=== PATIENT | female | born 1955 | race Caucasian/White ===

== ENCOUNTER 2016-08-26 11:23 | Emergency (ER) | payer OTHER ==
[2016-08-26 11:35] VITALS: BP 124/62; PULSE 66; RESP 18; TEMP 98; O2SAT 97
--- NOTE | 2016-08-26 13:20 | UCPHY ---
H & P Time Seen by Provider: 08/26/16 11:36 Patient Type: New HPI/ROS: 61-year-old female with no significant past medical history presents complaining of cough, fevers chills myalgias for approximately 4 days duration. She states she rarely gets sick and this is highly unusual for her. She has called in sick 2 days this week to work which is also quite unusual for her. She runs daily, she is not a smoker. Review of systems As per HPI General positive fever positive chills no weakness, positive fatigue HEENT no eye pain no eye discharge. 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 Denies smoking Runs 4-5 times per week Smoking Status: Never smoked Physical Exam: 61-year-old female alert and oriented, nontoxic appearance afebrile HEENT atraumatic normocephalic, extraocular muscles intact, anicteric Oropharynx negative for erythema negative exudate, tolerating her own secretions Neck supple no meningismus Lungs clear to auscultation bilaterally Heart regular rate and rhythm without murmur rub or gallop Abdomen nondistended normoactive bowel sounds soft nontender Back no CVA tenderness, no step-offs, no spinal tenderness Extremities no cyanosis clubbing or edema Neuro alert and oriented, no focal deficits Constitutional: Initial Vital Signs Temperature (C) 36.6 C 08/26/16 11:31 Heart Rate 66 08/26/16 11:31 Respiratory Rate 18 08/26/16 11:31 Blood Pressure 124/62 H 08/26/16 11:31 O2 Sat (%) 97 08/26/16 11:31 O2 Delivery Mode Room Air Allergies/Adverse Reactions: CATS Allergy (Mild, Uncoded 05/15/14 15:28) Other-Enter Comments Home Medications: Medication Instructions Recorded Estrace 08/26/16 Synthroid 08/26/16 Medical Decision Making ED Course/Re-evaluation: Patient seen and evaluated for cough myalgias fevers chills of 4 days duration Presentation consistent with a flu-like illness Differential diagnosis considered URI, bronchitis, pneumonia, viral syndrome, influenza Influenza swab negative Chest x-ray negative Impression Viral syndrome, flu-like illness Plan Symptomatic/supportive care Rest, drink plenty of fluids acetaminophen or ibuprofen as needed for pain and fever Return if worsening Follow up with primary care physician Departure - Departure Disposition: Home, Routine, Self-Care Clinical Impression: Flu-like symptoms, Bronchitis Condition: Good Instructions: Acute Bronchitis (ED), Viral Syndrome (ED) Referrals: Haydee Lara MD [Primary Care Provider] - As per Instructions Stand Alone Forms: Work Excuse - PQRS PQRS Measurement: na
== END 2016-08-26 13:49 | disposition home or self-care (01) ==
LOC: CED 11:23
DX: B34.9 Viral infection, unspecified (principal)
CPT/HCPCS: 71020-PO; 87400-PO; 99203-PO; G0463-PO

== ENCOUNTER 2017-02-25 17:03 | Observation (INO) | payer OTHER ==
--- NOTE | 2017-02-25 18:09 | EDPHY ---
HPI/HX/ROS/PE/MDM Narrative: CHIEF COMPLAINT: Diplopia HPI: The patient is a 62 y/o female arriving with her friend complaining of double vision and stumbling onset early this morning. She woke up in the middle of the night to use the bathroom and noticed she had double vision and was stumbling and dizzy. She went back to sleep and when she woke up later she found her symptoms had not improved. She sees horizontal double vision in her right eye and "wavy" vision in her left eye when covering the opposite eye. Lying down improves her symptoms slightly. Looking to the left aggravates symptoms. She denies no eye pain or recent trauma, unilateral weakness or paresthesias. She also mentions she had a flu vaccination yesterday. She also notes recent poor exercise tolerance. REVIEW OF SYSTEMS: Aside from elements discussed in the HPI, a comprehensive 10-point review of systems was reviewed and is negative. 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 ENT:Disconjugate gaze when looking left. ENT inspection normal. Neck: Normal inspection. Full range of motion. Respiratory:No respiratory distress. Breath sounds normal bilaterally. Cardiovascular: Regular rate and rhythm. Strong peripheral pulses. Normal cap refill. Abdomen:The abdomen is nontender to palpation. There are no peritoneal signs. Back: Normal to inspection. No tenderness to palpation. Skin: Normal color. No rash. Warm and dry. Extremities: Normal appearance. Full range of motion. Neuro: Oriented x3. Normal motor function. Normal sensory function. No pronator drift. Normal [id number]. Normal [id number]-[id number]. Sightly abnormal dysdiadochokinesis of left hand. ED Course: Brain MRI ordered. Patient placed on loan adviser. 1mg IV Ativan administered for anxiety in the MRI. The 12 lead EKG was interpreted by myself. Sinus mechanism rate 66. Anterior Q waves present. See hard copy and/or "tracemaster" electronic copy for interpretation. Brain MRI: incidental mass near jugular fossa, nonspecific white matter changes. 1951: Consulted with Dr. Abarca, [facility]. He will assess patient via telemedicine bot. 2019: Consulted with Dr. Abarca. 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 She will require admission for further evaluation. 2053: Spoke with hospitalist service. Dr. Solis accepts admission. Head CTA negative. MDM: This patient presents with acute diplopia and ataxia. 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 I have ordered numerous labs and CTA per Neurology. We will defer LP to inpatient team. I see no evidence of CVA, SAH, hyponatremia, ophthalmologic emergency. - Data Points Imaging Results: Imaging Impressions Brain MRI 02/25/17 18:13 Impression: 1. Moderate periventricular and deep hemispheric white matter change which is nonspecific. This can be seen with small vessel ischemic disease, postinfectious /postinflammatory etiology, or atypical demyelinating disease. No evidence for acute infarct or abnormal enhancement. 2. 3 x 2.5 cm vividly enhancing mass seen inferior from the region of the jugular fossa as above. 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 Recommend ENT consultation. Results discussed with Dr. Jamari Saeed at 1940 hours on 25 February 2017.6 Imaging: Discussed imaging studies w/ call manager Radiologist, I viewed and interpreted images myself Laboratory Results: Laboratory Results 02/25/17 17:56 02/25/17 17:56 02/25/17 02/25/17 02/25/17 17:56 17:56 17:56 WBC 5.12 10^3/uL 10^3/uL (3.80-9.50) RBC 5.61 10^6/uL H 10^6/uL (4.18-5.33) Hgb 16.4 g/dL H g/dL (12.6-16.3) Hct 48.2 % H % (38.0-47.0) MCV 85.9 fL fL (81.5-99.8) MCH 29.2 pg pg (27.9-34.1) MCHC 34.0 g/dL g/dL (32.4-36.7) RDW 14.9 % % (11.5-15.2) Plt Count 173 10^3/uL 10^3/uL (150-400) MPV 10.6 fL fL (8.7-11.7) Neut % (Auto) 61.5 % % (39.3-74.2) Lymph % (Auto) 23.8 % % (15.0-45.0) [place] % (Auto) 10.2 % % (4.5-13.0) Eos % (Auto) 2.9 % % (0.6-7.6) Baso % (Auto) 1.4 % % (0.3-1.7) Nucleat RBC Rel Count 0.0 % % (0.0-0.2) Absolute Neuts (auto) 3.15 10^3/uL 10^3/uL (1.70-6.50) Absolute Lymphs (auto) 1.22 10^3/uL 10^3/uL (1.00-3.00) Absolute Monos (auto) 0.52 10^3/uL 10^3/uL (0.30-0.80) Absolute Eos (auto) 0.15 10^3/uL 10^3/uL (0.03-0.40) Absolute Basos (auto) 0.07 10^3/uL 10^3/uL (0.02-0.10) Absolute Nucleated RBC 0.00 10^3/uL 10^3/uL (0-0.01) Immature Gran % 0.2 % % (0.0-1.1) Immature Gran # 0.01 10^3/uL 10^3/uL (0.00-0.10) PT 13.6 SEC SEC (12.0-15.0) INR 1.05 (0.83-1.16) APTT 26.1 SEC SEC (23.0-38.0) Sodium 135 mEq/L mEq/L (134-144) Potassium 3.9 mEq/L mEq/L (3.5-5.2) Chloride 104 mEq/L mEq/L (97-110) Carbon Dioxide 21 mEq/l L mEq/l (22-31) Anion Gap 10 mEq/L mEq/L (8-16) BUN 12 mg/dL mg/dL (7-23) Creatinine 1.0 mg/dL mg/dL (0.6-1.0) Estimated GFR 56 Glucose 75 mg/dL mg/dL (70-100) Calcium 9.5 mg/dL mg/dL (8.5-10.4) Troponin I < 0.012 ng/mL ng/mL (0.000-0.034) Medications Given: Discontinued Medications Lorazepam (Ativan Injection) 1 mg IVP EDNOW ONE Stop: 02/25/17 18:24 Last Admin: 02/25/17 18:31 Dose: 1 mg General Time Seen by Provider: 02/25/17 17:52 Initial Vital Signs: Initial Vital Signs Temperature (C) 36.8 C 02/25/17 17:22 Heart Rate 79 02/25/17 17:22 Respiratory Rate 17 02/25/17 17:22 Blood Pressure 129/93 H 02/25/17 17:22 O2 Sat (%) 98 02/25/17 17:22 O2 Delivery Mode Room Air Allergies/Adverse Reactions: CATS Allergy (Mild, Uncoded 05/15/14 15:28) Other-Enter Comments Home Medications: Medication Instructions Recorded Cholecalciferol Vit D3 [Vitamin D3 2,000 units PO HS 02/25/17 (*)] Estrogen,Donya/Me-Testosterone 1 tab PO HS 02/25/17 [Estratest H.s. 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 I personally performed the history, physical exam, and medical decision making; and confirm the accuracy of the information in the transcribed note.
[2017-02-25 18:22] LABS: % IMMATURE GRANULYOCYTES 0.2 % (0.0-1.1); ABSOLUTE IMMATURE GRANULOCYTES 0.01 10^3/uL (0.00-0.10); ADD DIFF? NO; ADD MORPH? NO; ADD SCAN? NO; ATYPICAL LYMPHOCYTE FLAG 0 (0-99); FRAGMENT RBC FLAG 0 (0-99); HEMATOCRIT 48.2 % (38.0-47.0); HEMOGLOBIN 16.4 g/dL (12.6-16.3); LEFT SHIFT FLG 0 (0-99); LIPEMIA HEMOLYSIS FLAG 90 (0-99); MEAN CELL HEMOGLOBIN 29.2 pg (27.9-34.1); MEAN CELL VOLUME 85.9 fL (81.5-99.8); MEAN PLATELET VOLUME 10.6 fL (8.7-11.7); PLATELET CLUMPS FLAG 0 (0-99); PLATELET COUNT 173 10^3/uL (150-400); RED BLOOD CELL COUNT 5.61 10^6/uL (4.18-5.33); RED CELL DISTRIBUTION WIDTH 14.9 % (11.5-15.2)
[2017-02-25] MEDS ORDERED: LORazepam 2 MG/ML INJ IVP ONE (18:23)
--- NOTE | 2017-02-25 18:26 | CPEKG ---
Heart Rate: 66 RR Interval: 909 P-R Interval: 168 QRSD Interval: 68 QT Interval: 396 QTC Interval: 415 P [place]: 47 QRS [place]: -40 T Wave [place]: 15 EKG Severity - ABNORMAL ECG - EKG Impression: SINUS RHYTHM EKG Impression: LEFT AXIS DEVIATION EKG Impression: ANTERIOR INFARCT, OLD Electronically Signed By: Ravi Cali 25-Feb-2017 20:35:31
[2017-02-25 18:29] LABS: ANION GAP 10 mEq/L (8-16); CALCIUM 9.5 mg/dL (8.5-10.4); CARBON DIOXIDE 21 mEq/l (22-31); CHLORIDE 104 mEq/L (97-110); GLOMERULAR FILTRATION RATE 56; GLUCOSE 75 mg/dL (70-100); POTASSIUM 3.9 mEq/L (3.5-5.2); SODIUM 135 mEq/L (134-144)
[2017-02-25 18:31] LABS: INR 1.05 (0.83-1.16); PROTIME(PATIENT) 13.6 SEC (12.0-15.0)
[2017-02-25 18:32] LABS: APTT 26.1 SEC (23.0-38.0)
[2017-02-25 18:39] LABS: TROPONIN I < 0.012 ng/mL (0.000-0.034)
[2017-02-25] MEDS ORDERED: GADOBUTROL 10 ML VIAL IVP ONE (18:56)
[2017-02-25] MEDS ORDERED: IOPAMIDOL (ISOVUE 370) 100 ML BTL IV ONE (20:36)
[2017-02-25 20:48] LABS: HEMATOCRIT 49.5 % (38.0-47.0)
[2017-02-25 21:10] LABS: C-REACTIVE PROTEIN 6.6 mg/L (<10.0)
[2017-02-25] MEDS ORDERED: ONDANSETRON 4 MG/2 ML VIAL IVP PRN (23:21)
[2017-02-25] MEDS ORDERED: ONDANSETRON DISINTEGRATING 4 MG TAB PO PRN (23:21)
[2017-02-25] MEDS ORDERED: ACETAMINOPHEN 325 MG TAB PO PRN (23:21)
--- NOTE | 2017-02-26 00:36 | PDGENHP ---
History and Physical - Chief Complaint Dizziness - History of Present Illness 62 yo F w/ hypothyroidism presents with one day of dizziness. Patient received her flu shot on the day prior to admission. She had a normal day after that and went to sleep. She got up in the middle of the night to go to the bathroom and noticed that she was unsteady on her feet. She did not make of much of this and went back to sleep. Then, she noticed that her symptoms persisted upon waking so she came to the ED. She describes dizziness, unsteady gait, falling to her left side, and double vision. She denies headache, weakness, or numbness. She complains of double vision specifically if she keeps her R eye open. History Information - Allergies/Home Medication List Allergies/Adverse Reactions: CATS Allergy (Mild, Uncoded 05/15/14 15:28) Other-Enter Comments Home Medications: Cholecalciferol Vit D3 [Vitamin D3 (*)] 2,000 units PO HS 02/25/17 [Last Taken 02/24/17] Estrogen,Donya/Me-Testosterone [Estratest H.s. Tablet] 0.5 tab PO DAILY [Last Taken Unknown] Levothyroxine [Synthroid 25 mcg (*)] 25 mcg PO DAILY06 02/25/17 [Last Taken ] Norethindrone Acetate 2.5 tab PO HS 02/25/17 [Last Taken 02/24/17] I have personally reviewed and updated: family history, medical history - Past Medical History Additional medical history: Hypothyroid - Surgical History Reports: no pertinent surgical hx - Family History Positive for: cancer, CAD - Social History Smoking Status: Never smoked Alcohol Use: Occasionally Drug Use: None Review of Systems Review of Systems: ROS: 10pt was reviewed & negative except for what was stated in HPI & below Physical Exam Physical Exam: Temp Pulse Resp BP Pulse Ox 37.0 C 74 18 127/86 H 97 02/25/17 23:53 02/25/17 23:53 02/25/17 23:53 02/25/17 23:53 02/25/17 23:53 Constitutional: no apparent distress, appears nourished Eyes: PERRL, other (Cannot adduct R eye past mid-line, no ptosis, able to weakly adduct on convergence) Ears, Nose, Mouth, Throat: moist mucous membranes, no oral mucosal ulcers Cardiovascular: regular rate and rhythym, no murmur, rub, or gallop Respiratory: no respiratory distress, clear to auscultation Gastrointestinal: normoactive bowel sounds, soft, non-tender abdomen Skin: warm, no rashes or abrasions Musculoskeletal: full muscle strength, no muscle tenderness Neurologic: AAOx3, sensation intact bilaterally, other (Neurologic exam normal aside from abnormality in ocular movement), No weakness, No numbness, No pronator drift, No facial droop Psychiatric: interacting appropriately, not anxious Lab Data & Imaging Review 02/25/17 Unknown 02/25/17 17:56 WBC 5.12 10^3/uL (3.80-9.50) 02/25/17 17:56 RBC 5.61 10^6/uL (4.18-5.33) H 02/25/17 17:56 Hgb 16.4 g/dL (12.6-16.3) H 02/25/17 17:56 Hct 49.5 % (38.0-47.0) H 02/25/17 Unknown MCV 85.9 fL (81.5-99.8) 02/25/17 17:56 MCH 29.2 pg (27.9-34.1) 02/25/17 17:56 MCHC 34.0 g/dL (32.4-36.7) 02/25/17 17:56 RDW 14.9 % (11.5-15.2) 02/25/17 17:56 Plt Count 173 10^3/uL (150-400) 02/25/17 17:56 MPV 10.6 fL (8.7-11.7) 02/25/17 17:56 Neut % (Auto) 61.5 % (39.3-74.2) 02/25/17 17:56 Lymph % (Auto) 23.8 % (15.0-45.0) 02/25/17 17:56 [place] % (Auto) 10.2 % (4.5-13.0) 02/25/17 17:56 Eos % (Auto) 2.9 % (0.6-7.6) 02/25/17 17:56 Baso % (Auto) 1.4 % (0.3-1.7) 02/25/17 17:56 Nucleat RBC Rel Count 0.0 % (0.0-0.2) 02/25/17 17:56 Absolute Neuts (auto) 3.15 10^3/uL (1.70-6.50) 02/25/17 17:56 Absolute Lymphs (auto) 1.22 10^3/uL (1.00-3.00) 02/25/17 17:56 Absolute Monos (auto) 0.52 10^3/uL (0.30-0.80) 02/25/17 17:56 Absolute Eos (auto) 0.15 10^3/uL (0.03-0.40) 02/25/17 17:56 Absolute Basos (auto) 0.07 10^3/uL (0.02-0.10) 02/25/17 17:56 Absolute Nucleated RBC 0.00 10^3/uL (0-0.01) 02/25/17 17:56 Immature Gran % 0.2 % (0.0-1.1) 02/25/17 17:56 Immature Gran # 0.01 10^3/uL (0.00-0.10) 02/25/17 17:56 ESR 5 MM/HR (0-30) 02/25/17 Unknown PT 13.6 SEC (12.0-15.0) 02/25/17 17:56 INR 1.05 (0.83-1.16) 02/25/17 17:56 APTT 26.1 SEC (23.0-38.0) 02/25/17 17:56 Sodium 135 mEq/L (134-144) 02/25/17 17:56 Potassium 3.9 mEq/L (3.5-5.2) 02/25/17 17:56 Chloride 104 mEq/L (97-110) 02/25/17 17:56 Carbon Dioxide 21 mEq/l (22-31) L 02/25/17 17:56 Anion Gap 10 mEq/L (8-16) 02/25/17 17:56 BUN 12 mg/dL (7-23) 02/25/17 17:56 Creatinine 1.0 mg/dL (0.6-1.0) 02/25/17 17:56 Estimated GFR 56 02/25/17 17:56 Glucose 75 mg/dL (70-100) 02/25/17 17:56 Calcium 9.5 mg/dL (8.5-10.4) 02/25/17 17:56 Troponin I < 0.012 ng/mL (0.000-0.034) 02/25/17 17:56 C-Reactive Protein 6.6 mg/L (<10.0) 02/25/17 Unknown TSH 1.880 uIU/mL (0.465-4.680) 02/25/17 Unknown Imaging Review: Multiple periventricular and deep hemispheric white matter lesions seen in MRI on T2 and FLAIR images. 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 Visualized and Interpreted EKG results: Yes EKG Interpretation: Positive for: normal sinsus rhythm Assessment & Plan Assessment: 62 yo F presents with dizziness, unsteady gait, and inability adduct R eye past midline one day after receiving a flu shot. Plan: 1. Ophthalmoplegia - Unable to adduct R eye past midline; she is able to weakly adduct it on convergence. The remainder of her neurologic exam is WNL. This seems consistent with internuclear ophthalmoplegia noting lack of ptosis and pupillary abnormalities. In conjunction with periventricular white matter lesions on MRI, picture is concerning for new onset MS. During teleconsultation in the ED with Dr. 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 After my evaluation and review of imaging, I discussed findings with Dr. Taveras of [facility], who also felt this to be consistent with MS. He recommended holding off on IVIG and giving Solumedrol 1g IV until our neurologist could evaluate her in the morning. It was his opinion that if our neurologists decided to give IVIG in the morning, it would not be affected by giving steroids now. - Solumedrol 1g IV x1 - Neurology consult placed 2. 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 - Likely amenable to outpatient ENT consultation 3. Hypothyroidism - On LTX as outpatient Diet - Regular Code - Full Ppx - SCDs Dispo - Admit to inpatient for solumedrol x3 days vs IVIG; pending neurology consultation
[2017-02-26] MEDS ORDERED: methylPREDNISolone SOD SUCC 1 GM in D5W 100 ML IV ONE ×2 (01:05→16:55)
[2017-02-26 07:47] LABS: % IMMATURE GRANULYOCYTES 0.2 % (0.0-1.1); ABSOLUTE IMMATURE GRANULOCYTES 0.01 10^3/uL (0.00-0.10); ADD DIFF? NO; ADD MORPH? NO; ADD SCAN? NO; ATYPICAL LYMPHOCYTE FLAG 0 (0-99); FRAGMENT RBC FLAG 0 (0-99); HEMATOCRIT 47.6 % (38.0-47.0); HEMOGLOBIN 16.4 g/dL (12.6-16.3); LEFT SHIFT FLG 0 (0-99); LIPEMIA HEMOLYSIS FLAG 90 (0-99); MEAN CELL HEMOGLOBIN 29.2 pg (27.9-34.1); MEAN CELL HEMOGLOBIN CONCENTR. 34.5 g/dL (32.4-36.7); MEAN CELL VOLUME 84.8 fL (81.5-99.8); MEAN PLATELET VOLUME 10.3 fL (8.7-11.7); PLATELET CLUMPS FLAG 10 (0-99); PLATELET COUNT 184 10^3/uL (150-400); RED BLOOD CELL COUNT 5.61 10^6/uL (4.18-5.33); RED CELL DISTRIBUTION WIDTH 14.7 % (11.5-15.2)
[2017-02-26 08:07] LABS: ANION GAP 13 mEq/L (8-16); CARBON DIOXIDE 18 mEq/l (22-31); CHLORIDE 105 mEq/L (97-110); GLOMERULAR FILTRATION RATE 56; GLUCOSE 96 mg/dL (70-100); POTASSIUM 4.2 mEq/L (3.5-5.2); SODIUM 136 mEq/L (134-144)
[2017-02-26] MEDS ORDERED: TESTOSTERONE PO SCH ×2 (10:00→21:00)
[2017-02-26] MEDS ORDERED: LEVOTHYROXINE 25 MCG TAB PO SCH (10:00)
[2017-02-26] MEDS ORDERED: ESTROGEN ESTER PO SCH ×2 (10:00→21:00)
--- NOTE | 2017-02-26 14:18 | NEUROPROG ---
Assessment: [id number] CC: dizziness, vision disturbance HPI: Pt presented to [facility] ER on 02/25/17 for 1 day of dizziness. She received her flu shot 1 day prior to admission. She reported problems moving her right eye with double vision and a sense of dizziness occurred the next day. She denied headache, weakness, or numbness. A brain MRI showed a R neck tumor (MRI report below). Teleneurology was contacted and case discussed with two different neurologists. One felt this could be a new multiple sclerosis attack and recommended IV steroids and one felt it could be a variant of acute inflammatory demyelinating polyneuropathy and recommend IVIG. The patient did get an initial dose of IV solumedrol 1,000 mg qd. I initially saw her on and confirmed the above history. PMHx: hypothyroidism Home Meds: Vit D, levothyroxine, norethindrone SHx: no tobacco FHx: cancer, CAD ROS: Pt denied acute fever, total vision loss, active severe chest pain, respiratory failure, total body severe rash, total bowel/bladder incontinence, psychosis, active seizures, or active bleeding O: VS reviewed General: Alert Eyes: Fundoscopic exam not able to visualize optic disks CV: Heart RRR, no murmur, no carotid bruit Lungs: Clear to auscultation bilaterally, no rhonci or rales Neuro: - Mental: . Oriented x person/place/date . concentration appears normal . speech fluency/comprehension normal . memory appears normal . fund of knowledge appear intact - Cranial Nerves: . II: PERRL, VFFTC . III/IV/: EOM normal on left but right eye shows inability to adduct eye , no nystagmus, normal smooth pursuits, no Ptosis . V: facial sensation intact to LT . VII: face symmetric to eye closure and smile . VIII: hearing intact to conversation . IX/X: uvula raises symmetrically . XI: SCM 5/5 B/L strength . XII: tongue protrudes midline w/nl strength - Motor: . Tone: normal tone in all 4 extrem . Strength: no pronator drift, strength 5/5 throughout (B/L delt, bic, tri, hand ignition mechanic, hf/he, df/pf) - Reflexes: B/L bic/BR/patella 2/4 - Sensory: all 4 extrem intact to light touch - Coord: symzpi-kf-dnef wnl, GARETH wnl, olth-hv-dbnm wnl - Gait: normal casual gait Labs: 02/25/17- ESR 5, Coags wnl, Chem CO2 21L, Trop neg, TSH wnl, CRP wnl 02/26/17- CBC Hct 47.6H Rads: 02/25/17- Brain MRI w/ and w/o con: mod white matter disease which appears most consistent with chronic microvascular disease but may represent atypical demyelination, 3 x 2.5 cm enhancing mass inferior from jugular fossa region (I personally visualized the images on 02/26/17) 02/25/17- CTA head/neck: no significant vessel abnormality Assessment: 1. 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 Brain MRI shows neck tumor and white matter changes most consistent with aging. The new R LALIT could be a from an autoimmune reaction from the flu shot, idiopathic, or an initial attack of multiple sclerosis. Atypical Guillain [place] Syndrome (Rodriguez Allen Variant) seems unlikely given normal reflexes and no ataxia. We will complete 5 days of IV solumedrol 1,000 mg/day to cover possibility this is an initial central demyelinating event. We will get a spinal tap looking for multiple sclerosis or guillain barre syndrome changes to further evaluate her complaints 2. 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 Recommend ENT consult outpatient. 3. Hypothyroidism Plan: - Labs: T3/T4 at outpatient f/u visit - Outpatient ENT consult for neck mass - IV Solumedrol 1,000 mg qd x 5 days (day ), we discussed using plasma exchange to cover both multiple sclerosis attack or atypical Guillain [place] Syndrome but patient declined. Pt wishes to have these steroid infusions transferred to an outpatient setting as soon as possible - Pt prefers to leave the hospital as soon as possible, she declined inpatient spinal tap but will call me office on Tuesday to get spinal tap set up for Tuesday as well as f/u for Tuesday Objective: Vital Signs Temp Pulse Resp BP Pulse Ox 36.8 C 76 14 118/77 95 02/26/17 11:23 02/26/17 11:23 02/26/17 11:23 02/26/17 11:23 02/26/17 11:23 Laboratory Results 02/26/17 07:20 02/26/17 07:20 02/25/17 02/26/17 02/27/17 05:59 05:59 05:59 Intake Total 200 Balance 200 PT 13.6 SEC (12.0-15.0) 02/25/17 17:56 INR 1.05 (0.83-1.16) 02/25/17 17:56 Allergies/Adverse Reactions: CATS Allergy (Mild, Uncoded 05/15/14 15:28) Other-Enter Comments
--- NOTE | 2017-02-26 14:32 | ASMTCMCOM ---
CM Note CM Note Notes: Pt admitted for possible reaction to flu shot, early MS or something else per Dr Urbina. Plan is for pt to DC on 3 more days of IV solumedrol at home if HC RN for [facility] located. Called [facility] and they can supply the solumedrol. Left 2 msgs for [facility] who go to [place] but no call back yet. [facility] is not open on the weekend. C/M will continue to follow. Date Signed: 02/26/2017 02:32 PM Electronically Signed By:Mellissa Flores LCSW
--- NOTE | 2017-02-26 15:07 | ASMTCMCOM ---
CM Note CM Note Notes: [place] back from [facility] and they are unable to staff pt tomorrow and are very iff for Tuesday. 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 C/M to follow. Date Signed: 02/26/2017 03:07 PM Electronically Signed By:Mellissa Flores LCSW
[2017-02-26 15:25] VITALS: BP 132/78; PULSE 83; RESP 16; TEMP 97.8; O2SAT 94
--- NOTE | 2017-02-26 17:13 | ASMTCMCOM ---
AMBERLY Note AMBERLY Note Notes: AMBERLY spoke w/pt and re; scheduling outpt infusion for solu-medrol. Pt will get dose now then dc home and return for 3 days to outpt infusion room, she is scheduled at 2:30. Pt understands she needs to check in at kiosk near ER. Date Signed: 02/26/2017 05:13 PM Electronically Signed By:Kaley Ceja RN
--- NOTE | 2017-02-26 17:14 | PDDCSUM ---
Discharge Summary Discharge Summary: DISCHARGE SUMMARY FOLLOW-UP ITEMS: Outpatient neuro reassessment next week Follow up with ear nose and throat DATE OF ADMISSION: 02/25/2017 DATE OF DISCHARGE: 02/26/2017 DISCHARGE DIAGNOSES: 1. Possible multiple sclerosis flare 2. Acute internuclear ophthalmoplegia 3. 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 CONSULTATIONS: Neurology PROCEDURES / IMAGING: MRI of brain demonstrating periventricular white matter deposits, 3 x 2.5 cm left neck mass at the carotid bifurcation CHIEF COMPLAINT: Acute blurred vision SUBJECTIVE: Patient continues to have blurred vision PHYSICAL EXAM ON DISCHARGE: Systolic blood pressure is 110, heart rate 70, afebrile overnight, satting on room air, right eye medial ophthalmoplegia, cranial nerves 2-12 are otherwise intact, motor strength 5/5 bilaterally, sensation is intact bilaterally LABS ON DISCHARGE: Armen level pending at time discharge, CRP 6, ESR 5, TSH normal, DAQUAN pending HOSPITAL COURSE BY PROBLEM: 1. Internuclear ophthalmoplegia. Potentially secondary to new diagnosis of MS flare, versus MS like reaction in the setting of recent influenza vaccine, presentation is not consistent with Guillain-[place]. Patient was evaluated by Neurology, they recommended IV Solu-Medrol 1 g daily, x5 days patient will be receiving this through the infusion center. She received her 1st 2 doses at [facility]. We have advised her not to drive until she is reassessed in the neurology clinic this Tuesday. She will most likely have an outpatient lumbar puncture at that time. She does not currently have any evolving neurologic symptoms. 2. 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 Incidentally found on imaging, and not identified on physical exam patient should have an outpatient ear nose and throat consultation. It is not currently causing any symptoms and is not currently compressing her left carotid artery. DISCHARGE MEDICATIONS: Please see official discharge medication reconciliation sheet in chart , Solu- Medrol 1 g daily x5 days. DISCHARGE INSTRUCTIONS: Please follow up with Neurology this was Tuesday. TIME SPENT: Greater than 30 minutes were spent on direct patient care, as well as discharge planning and preparation. The patient's condition rapidly improved faster than originally anticipated by her admitting provider, secondary to her highly efficient expeditious care by her nursing staff, hospitalist, Neurology application consultant, case management. The patient has been arranged for outpatient infusion of IV Solu-Medrol and is neurologically safe for discharge at this time
[2017-02-26] MEDS ORDERED: NORETHINDRONE ACET 5 MG TAB PO SCH (21:00)
[2017-02-26] MEDS ORDERED: CHOLECALCIFEROL VIT D3 1,000 UNITS TAB PO SCH (21:00)
[2017-02-27] MEDS ORDERED: LEVOTHYROXINE 25 MCG TAB PO SCH (06:00)
[2017-02-28 10:22] LABS: ANGIOTENSIN CONVERTING ENZYME 27 U/L (8 - 53)
[2017-02-28 14:08] LABS: c-ANCA Negative (Negative); p-ANCA Negative (Negative)
== END 2017-02-26 18:48 | disposition home or self-care (01) ==
LOC: F3N 22:15 → OBSVTOIN 23:21 → INTOOBSV 23:21
PROVIDERS: ADMIT Internal Medicine; ATTEND Student in an Organized Health Care Education/Training Program
DX: G35 Multiple sclerosis (principal); H51.23 Internuclear ophthalmoplegia, bilateral; D48.7 Neoplasm of uncertain behavior of other specified sites; E03.9 Hypothyroidism, unspecified; Z80.9 Family history of malignant neoplasm, unspecified
CPT/HCPCS: 82164-90; 86255-90; 96374; 97161-GP; 97165-GO; A9585; G0378; J2060; J2930; Q9967

== ENCOUNTER → 2017-06-28 | Outpatient (CLI) | payer OTHER | LOC: FIMAGING 13:55 | PROVIDERS: ATTEND Internal Medicine | DX: N63.21 Unspecified lump in the left breast, upper outer quadrant (principal) ==

== ENCOUNTER → 2018-05-31 | Outpatient (CLI) | payer OTHER ==
[~2018-05-31] MED LIST: IOPAMIDOL (ISOVUE-300) 100 ML BTL ONE
== END ==
LOC: FIMAGING 07:42
PROVIDERS: ATTEND Radiology Radiation Oncology
DX: D44.7 Neoplasm of uncertain behavior of aortic body and other paraganglia (principal)
CPT/HCPCS: Q9967

== ENCOUNTER → 2018-07-12 | Outpatient (CLI) | payer OTHER | LOC: FIMAGING 13:36 | PROVIDERS: ATTEND Internal Medicine | DX: M19.011 Primary osteoarthritis, right shoulder (principal) ==

== ENCOUNTER → 2018-08-08 | Outpatient (CLI) | payer OTHER | LOC: FIMAGING 18:57 | PROVIDERS: ATTEND Internal Medicine | DX: S43.81XA Sprain of other specified parts of right shoulder girdle, initial encounter (principal); M75.51 Bursitis of right shoulder; M75.21 Bicipital tendinitis, right shoulder ==

== ENCOUNTER → 2018-08-18 | Outpatient (CLI) | payer OTHER | LOC: FIMAGING 16:00 | PROVIDERS: ATTEND Internal Medicine | DX: Z12.31 Encounter for screening mammogram for malignant neoplasm of breast (principal) ==